=== PATIENT | male | born 1985 | race Caucasian/White ===

== ENCOUNTER 2016-09-02 03:57 | Emergency (ER) | payer MEDICAID, OTHER ==
[2016-09-02 04:10] VITALS: BP 119/71
[2016-09-02] MEDS ORDERED: Lactated Ringers 1,000 ML IV ONE (04:29)
[2016-09-02] MEDS ORDERED: Ondansetron 4 MG/2 ML SDV IV ONE (04:29)
[2016-09-02] MEDS ORDERED: HYDROmorphone 1 MG/ML Syringe IVPUSH ONE (04:35)
--- NOTE | 2016-09-02 04:35 | EDM.PDOC ---
ED HPI GENERAL MEDICAL PROBLEM - General Chief Complaint: Abdominal Pain Stated Complaint: CHEST PAIN Time Seen by Provider: 09/02/16 04:00 Source of Information: Reports: Patient History Limitations: Reports: No Limitations - History of Present Illness INITIAL COMMENTS - FREE TEXT/NARRATIVE: This 30 yo male patient reports to the ED with right upper abdominal pain that started at about 0100 this morning. The patient reports he has vomited numerous times since the onset of his symptoms. The patient reports he had hamburgers and brats last night at about 1900 and went to the movies after eating. The patient reports he has never had similar symptoms in the past. The patient reports he has not been having any difficulties with his bowel movement or urinary symptoms. The patient reports he drank some water that may have helped his symptoms. Onset: Today Onset Date: 09/02/16 Onset Time: 01:00 Duration: Getting Worse, Intermittent Location: Reports: Abdomen (RUQ) Quality: Reports: Ache, Sharp Severity: Severe Improves with: Reports: None Worsens with: Reports: None Associated Symptoms: Reports: No Other Symptoms Right Upper Abdominal Pain Score (Numeric/FACES): 10 - Related Data Allergies Allergy/AdvReac Type Severity Reaction Status Date / Time No Known Allergies Allergy Verified 09/02/16 04:02 Home Meds: Home Meds Sertraline [Zoloft] 1 tab PO DAILY 09/02/16 [History] Past Medical History Psychiatric History: Reports: Anxiety, Depression, PTSD - Past Surgical History HEENT Surgical History: Reports: Tonsillectomy Social & Family History - Tobacco Use Smoking Status *Q: Current Every Day Smoker Years of Tobacco use: 13 Packs/Tins Daily: 0.3 Used Tobacco, but Quit: No Second Hand Smoke Exposure: Yes - Caffeine Use Caffeine Use: Reports: Soda - Alcohol Use Days Per Week of Alcohol Use: 2 Number of Drinks Per Day: 6 Total Drinks Per Week: 12 - Recreational Drug Use Recreational Drug Use: No ED ROS GENERAL - Review of Systems Review Of Systems: ROS reveals no pertinent complaints other than HPI. ED EXAM, GI/ABD - Physical Exam Exam: See Below Exam Limited By: No Limitations General Appearance: Alert, WD/WN, Moderate Distress Eyes: Bilateral: Normal Appearance, EOMI Ears: Normal External Exam, Normal Canal, Hearing Grossly Normal, Normal TMs Nose: Normal Inspection, Normal Mucosa, No Blood Throat/Mouth: Normal Inspection, Normal Lips, Normal Teeth, Normal Gums, Normal Oropharynx, Normal Voice, No Airway Compromise Head: Atraumatic, Normocephalic Neck: Normal Inspection, Supple, Non-Tender, Full Range of Motion Respiratory/Chest: No Respiratory Distress, Lungs Clear, Normal Breath Sounds, No Accessory Muscle Use, Chest Non-Tender Cardiovascular: Normal Peripheral Pulses, Regular Rate, Rhythm, No Edema, No Gallop, No JVD, No Murmur, No Rub GI/Abdominal: Normal Bowel Sounds, Soft, Tenderness (RUQ with mild rebound tenderness to the right lower quadrant) (Male) Exam: Deferred Rectal (Males) Exam: Deferred Back Exam: Normal Inspection, Full Range of Motion, NT Extremities: Normal Inspection, Normal Range of Motion, Non-Tender, Normal Capillary Refill, No Pedal Edema Neurological: Alert, Oriented, CN II-XII Intact, Normal Cognition, Normal Gait, Normal Reflexes, No Motor/Sensory Deficits Psychiatric: Normal Affect, Normal Mood Skin Exam: Warm, Dry, Intact, Normal Color, No Rash Lymphatic: No Adenopathy Course - Vital Signs Last Recorded V/S: Last Vital Signs Temp 35.7 C 09/02/16 04:09 Pulse 67 09/02/16 04:09 Resp 24 H 09/02/16 04:09 BP 119/71 09/02/16 04:09 Pulse Ox 100 09/02/16 04:09 - Orders/Labs/Meds Labs: Laboratory Tests 09/02/16 09/02/16 09/02/16 Range/Units 04:15 04:15 04:24 WBC 15.3 H (5.0-10.0) 10^3/uL RBC 5.40 (4.6-6.2) 10^6/uL Hgb 15.9 (14.0-18.0) g/dL Hct 45.9 (40.0-54.0) % MCV 85.0 (80-100) fL MCH 29.4 (27.0-34.0) pg MCHC 34.6 (33.0-35.0) g/dL Plt Count 247 (150-450) 10^3/uL Neut % (Auto) 46.7 (42.2-75.2) % Lymph % (Auto) 41.9 (20.5-50.1) % [place] % (Auto) 8.1 H (2-8) % Eos % (Auto) 2.9 (1.0-3.0) % Baso % (Auto) 0.4 (0.0-1.0) % Sodium 140 (135-145) mmol/L Potassium 3.4 L (3.6-5.0) mmol/L Chloride 103 (101-111) mmol/L Carbon Dioxide 24.0 (21.0-31.0) mmol/L Anion Gap 16.4 BUN 13 (7-18) mg/dL Creatinine 1.2 (0.6-1.3) mg/dL Est Cr Clr Drug Dosing 95.00 mL/min Estimated GFR (MDRD) > 60 BUN/Creatinine Ratio 10.83 Glucose 106 H (74-105) mg/dL Calcium 9.5 (8.4-10.2) mg/dl Magnesium 1.9 (1.8-2.5) mg/dL Total Bilirubin 0.3 (0.2-1.0) mg/dL AST 48 H (10-42) IU/L ALT 97 H (10-60) IU/L Alkaline Phosphatase 61 (42-121) IU/L Total Protein 7.6 (6.7-8.2) g/dl Albumin 4.4 (3.2-5.5) g/dl Globulin 3.2 Albumin/Globulin Ratio 1.38 Amylase 67 (28-100) U/L Lipase 40 (22-51) U/L Urine Color (YELLOW) Urine Appearance (CLEAR) Urine pH (5.0-9.0) Ur Specific Dexter (1.005-1.030) Urine Protein (NEGATIVE) Urine Glucose (UA) (NEGATIVE) Urine Ketones (NEGATIVE) Urine Occult Blood (NEGATIVE) Urine Nitrite (NEGATIVE) Urine Bilirubin (NEGATIVE) Urine Urobilinogen (0.2-1.0) mg/dL Ur Leukocyte Esterase (NEGATIVE) Urine RBC /HPF Urine WBC (0-5/HPF) /HPF Ur Epithelial Cells /HPF Urine Bacteria (0-FEW/HPF) /HPF Fine Granular Casts (0/LPF) /LPF Urine Mucus /LPF Urine Opiates Screen Negative (NEGATIVE) Ur Oxycodone Screen Negative (NEGATIVE) Urine Methadone Screen Negative (NEGATIVE) Ur Barbiturates Screen Negative (NEGATIVE) U Tricyclic Antidepress Negative (NEGATIVE) Ur Phencyclidine Scrn Negative (NEGATIVE) Ur Amphetamine Screen Negative (NEGATIVE) U Methamphetamines Scrn Negative (NEGATIVE) Urine MDMA Screen Negative (NEGATIVE) U Benzodiazepines Scrn Negative (NEGATIVE) Urine Cocaine Screen Negative (NEGATIVE) U Marijuana (THC) Screen Negative (NEGATIVE) Ethyl Alcohol < 5 mg/dL 09/02/16 Range/Units 04:24 WBC (5.0-10.0) 10^3/uL RBC (4.6-6.2) 10^6/uL Hgb (14.0-18.0) g/dL Hct (40.0-54.0) % MCV (80-100) fL MCH (27.0-34.0) pg MCHC (33.0-35.0) g/dL Plt Count (150-450) 10^3/uL Neut % (Auto) (42.2-75.2) % Lymph % (Auto) (20.5-50.1) % [place] % (Auto) (2-8) % Eos % (Auto) (1.0-3.0) % Baso % (Auto) (0.0-1.0) % Sodium (135-145) mmol/L Potassium (3.6-5.0) mmol/L Chloride (101-111) mmol/L Carbon Dioxide (21.0-31.0) mmol/L Anion Gap BUN (7-18) mg/dL Creatinine (0.6-1.3) mg/dL Est Cr Clr Drug Dosing mL/min Estimated GFR (MDRD) BUN/Creatinine Ratio Glucose (74-105) mg/dL Calcium (8.4-10.2) mg/dl Magnesium (1.8-2.5) mg/dL Total Bilirubin (0.2-1.0) mg/dL AST (10-42) IU/L ALT (10-60) IU/L Alkaline Phosphatase (42-121) IU/L Total Protein (6.7-8.2) g/dl Albumin (3.2-5.5) g/dl Globulin Albumin/Globulin Ratio Amylase (28-100) U/L Lipase (22-51) U/L Urine Color Yellow (YELLOW) Urine Appearance Clear (CLEAR) Urine pH 6.0 (5.0-9.0) Ur Specific Dex[place] 1.025 (1.005-1.030) Urine Protein Negative (NEGATIVE) Urine Glucose (UA) Negative (NEGATIVE) Urine Ketones Negative (NEGATIVE) Urine Occult Blood Trace-intact H (NEGATIVE) Urine Nitrite Negative (NEGATIVE) Urine Bilirubin Negative (NEGATIVE) Urine Urobilinogen 0.2 (0.2-1.0) mg/dL Ur Leukocyte Esterase Negative (NEGATIVE) Urine RBC 0-5 /HPF Urine WBC 10-20 H (0-5/HPF) /HPF Ur Epithelial Cells Moderate H /HPF Urine Bacteria Moderate H (0-FEW/HPF) /HPF Fine Granular Casts Few H (0/LPF) /LPF Urine Mucus Moderate H /LPF Urine Opiates Screen (NEGATIVE) Ur Oxycodone Screen (NEGATIVE) Urine Methadone Screen (NEGATIVE) Ur Barbiturates Screen (NEGATIVE) U Tricyclic Antidepress (NEGATIVE) Ur Phencyclidine Scrn (NEGATIVE) Ur Amphetamine Screen (NEGATIVE) U Methamphetamines Scrn (NEGATIVE) Urine MDMA Screen (NEGATIVE) U Benzodiazepines Scrn (NEGATIVE) Urine Cocaine Screen (NEGATIVE) U Marijuana (THC) Screen (NEGATIVE) Ethyl Alcohol mg/dL Meds: Medications Discontinued Medications Generic Name Dose Route Start Last Admin Trade Name Freq PRN Reason Stop Dose Admin Hydromorphone HCl 1 mg 09/02/16 04:35 09/02/16 04:44 Dilaudid IVPUSH 09/02/16 04:36 1 mg ONETIME ONE Administration Lactated Ringer's 1,000 mls @ 999 mls/hr 09/02/16 04:29 09/02/16 04:43 Ringers, Lactated IV 09/02/16 05:29 999 mls/hr .BOLUS ONE Administration Ondansetron HCl 4 mg 09/02/16 04:29 09/02/16 04:44 Zofran IV 09/02/16 04:30 4 mg ONETIME ONE Administration Departure - Departure Time of Disposition: 06:18 Disposition: Home, Self-Care 01 Condition: Fair Clinical Impression: Abdominal pain Qualifiers: Abdominal location: right upper quadrant Qualified Code(s): R10.11 - Right upper quadrant pain - Discharge Information Instructions: Abdominal Pain, Adult, [id number] Forms: ED Department Discharge Care Plan Goals: The patient was advised of the examination, lab and CT results during the visit. The patient was given IV fluids, Zofran and Dilaudid while in the ED. The CT demonstrated a fluid filled gallbladder, but no stones were identified. The patient was encouraged to stick to a low fat diet. If the patient has any additional symptoms or concerns, the patient should follow-up with his primary care facility for continued evaluation (Gallbladder ultrasound) and treatment.
[2016-09-02 04:48] LABS: CHLORIDE,CL 103 mmol/L (101-111); SODIUM,NA 140 mmol/L (135-145)
== END 2016-09-02 06:33 | disposition home or self-care (01) ==
LOC: DL.ED 03:57
DX: R10.11 Right upper quadrant pain (principal); Z79.899 Other long term (current) drug therapy; F32.9 Major depressive disorder, single episode, unspecified; F41.9 Anxiety disorder, unspecified; F17.210 Nicotine dependence, cigarettes, uncomplicated; K76.0 Fatty (change of) liver, not elsewhere classified
CPT/HCPCS: 36415; 74176; 80053; 80305; 81001; 82150; 83690; 83735; 85025; 96361; 96374; 96375; 99285; G0480; J1170; J2405; J7120

== ENCOUNTER 2019-10-13 07:21 | Emergency (ER) | payer MEDICAID, OTHER ==
[2019-10-13 07:44] VITALS: BP 123/69; PULSE 74
--- NOTE | 2019-10-13 07:50 | EDM.PDOC ---
ED HPI GENERAL MEDICAL PROBLEM - General Stated Complaint: [id number] SHARP PAIN IN CHEST UNDER RIBS Time Seen by Provider: 10/13/19 07:35 Source of Information: Reports: Patient History Limitations: Reports: No Limitations - History of Present Illness INITIAL COMMENTS - FREE TEXT/NARRATIVE: This 34 yo male patient reports to the ED with RUQ abdominal pain. The patient reports his symptoms started yesterday afternoon at about [id number]. The patient describes his pain as if someone placed their hand up under his right lower ribs and just holds on. The patient reports he had a chuckwagon for lunch prior to symptom onset. The patient reports he had dinner at the [employer] last night, ate a filet mignon and experienced increased symptoms after eating. The patient reports he has not taken anything for temporary symptom relief. The patient reports no similar episodes in the past. Onset Date: 10/12/19 Onset Time: 13:00 Duration: Constant Location: Reports: Abdomen (RUQ) Quality: Reports: Pressure (squeezing) Severity: Moderate Improves with: Reports: None Worsens with: Reports: Other (eating) Context: Reports: Other Treatments UNDERCOATER: Denies: Home Treatments Epigastric Pain Score (Numeric/FACES): 6 - Related Data Allergies Allergy/AdvReac Type Severity Reaction Status Date / Time No Known Allergies Allergy Verified 10/13/19 07:32 Home Meds: Home Meds . [No Known Home Meds] 10/13/19 [History] Past Medical History Psychiatric History: Reports: Anxiety, Depression, PTSD - Past Surgical History HEENT Surgical History: Reports: Tonsillectomy Social & Family History - Caffeine Use Caffeine Use: Reports: Soda ED ROS GENERAL - Review of Systems Review Of Systems: Comprehensive ROS is negative, except as noted in HPI. ED EXAM, GI/ABD - Physical Exam Exam: See Below Exam Limited By: No Limitations General Appearance: Alert, WD/WN, Moderate Distress Eyes: Bilateral: Normal Appearance, EOMI Ears: Normal External Exam, Normal Canal, Hearing Grossly Normal, Normal TMs Nose: Normal Inspection, Normal Mucosa, No Blood Throat/Mouth: Normal Inspection, Normal Lips, Normal Teeth, Normal Gums, Normal Oropharynx, Normal Voice, No Airway Compromise Head: Atraumatic, Normocephalic Neck: Normal Inspection, Supple, Non-Tender, Full Range of Motion Respiratory/Chest: No Respiratory Distress, Lungs Clear, Normal Breath Sounds, No Accessory Muscle Use, Chest Non-Tender Cardiovascular: Normal Peripheral Pulses, Regular Rate, Rhythm, No Edema GI/Abdominal Exam: Guarding, Tender (RUQ) (Male) Exam: Deferred Rectal (Males) Exam: Deferred Back Exam: Normal Inspection, Full Range of Motion, NT Extremities: Normal Inspection, Normal Range of Motion, Non-Tender, Normal Capillary Refill, No Pedal Edema Neurological: Alert, Oriented, CN II-XII Intact, Normal Cognition, Normal Gait, Normal Reflexes, No Motor/Sensory Deficits Psychiatric: Normal Affect, Normal Mood Skin Exam: Warm, Dry, Intact, Normal Color, No Rash Lymphatic: No Adenopathy Course - Vital Signs Last Recorded V/S: Last Vital Signs Temp 36.6 C 10/13/19 07:23 Pulse 74 10/13/19 07:23 Resp 16 10/13/19 07:23 BP 123/69 10/13/19 07:23 Pulse Ox 97 10/13/19 07:23 - Orders/Labs/Meds Labs: Laboratory Tests 10/13/19 10/13/19 Range/Units 07:46 07:46 WBC 12.7 H (5.0-10.0) 10^3/uL RBC 4.75 (4.6-6.2) 10^6/uL Hgb 13.9 L D (14.0-18.0) g/dL Hct 40.2 (40.0-54.0) % MCV 84.6 (80-100) fL MCH 29.3 (27.0-34.0) pg MCHC 34.6 (33.0-35.0) g/dL Plt Count 280 (150-450) 10^3/uL Neut % (Auto) 68.2 (42.2-75.2) % Lymph % (Auto) 19.7 L (20.5-50.1) % Power % (Auto) 7.8 (2-8) % Eos % (Auto) 3.9 H (1.0-3.0) % Baso % (Auto) 0.4 (0.0-1.0) % Sodium 138 (136-145) mmol/L Potassium 3.8 (3.5-5.1) mmol/L Chloride 104 (98-107) mmol/L Carbon Dioxide 23 (21-32) mmol/L Anion Gap 14.8 H (7-13) mEq/L BUN 16 (7-18) mg/dL Creatinine 1.16 (0.70-1.30) mg/dL Est Cr Clr Drug Dosing 94.67 mL/min Estimated GFR (MDRD) > 60 BUN/Creatinine Ratio 13.8 (No establ ref range) Glucose 111 H (74-99) mg/dL Calcium 8.4 L (8.5-10.1) mg/dL Total Bilirubin 0.3 (0.2-1.0) mg/dL AST 23 (15-37) U/L ALT 65 H (16-63) U/L Alkaline Phosphatase 67 (46-116) U/L Total Protein 7.2 (6.4-8.2) g/dL Albumin 3.6 (3.4-5.0) g/dL Globulin 3.6 Albumin/Globulin Ratio 1.0 Amylase 39 (25-115) U/L Lipase 151 (73-393) U/L Meds: Medications Discontinued Medications Generic Name Dose Route Start Last Admin Trade Name Freq PRN Reason Stop Dose Admin Al Hydroxide/Mg Hydroxide 30 ml 10/13/19 09:20 10/13/19 09:25 Gi Cocktail PO 10/13/19 09:21 30 ml ONETIME ONE Administration Iopamidol 100 ml 10/13/19 08:14 10/13/19 09:04 Isovue-300 (61%) IVPUSH 10/13/19 08:15 100 ml ONETIME ONE Administration Omeprazole 20 mg 10/13/19 09:48 Omeprazole PO 10/13/19 09:49 ONETIME ONE Departure - Departure Time of Disposition: 09:50 Disposition: Home, Self-Care 01 Condition: Fair Clinical Impression: PUD (peptic ulcer disease) - Discharge Information *PRESCRIPTION DRUG MONITORING PROGRAM REVIEWED*: Not Applicable *COPY OF PRESCRIPTION DRUG MONITORING REPORT IN PATIENT DEEDEE: Not Applicable Instructions: Peptic Ulcer, [id number], Peptic Ulcer Eating Plan Forms: ED Department Discharge Care Plan Goals: The patient was advised of the examination, lab and CT results during the visit. The patient was given a GI Cocktail and an oral dose of Omeprazole while in the ED. The patient was discharged with a script for Omeprazole (20 mg) #30 to take 1 by mouth daily (at least 30 minutes prior to eating). If the patient has any additional symptoms or concerns, the patient should either return to the emergency department or visit his primary care facility. Sepsis Event Note (ED) - Evaluation Sepsis Screening Result: No Definite Risk - Focused Exam Vital Signs: Vital Signs Temp Pulse Resp BP Pulse Ox 10/13/19 07:23 36.6 C 74 16 123/69 97
[2019-10-13 08:12] LABS: ANION GAP 14.8 mEq/L (7-13); CHLORIDE,CL 104 mmol/L (98-107); SODIUM,NA 138 mmol/L (136-145)
[2019-10-13] MEDS ORDERED: Iopamidol 612 MG/ML 100 ML Bottle IVPUSH ONE (08:14)
[2019-10-13] MEDS ORDERED: Bacitracin Oint 1 GM U/D Packet TOP ONE (09:08)
--- NOTE | 2019-10-13 09:14 | CT ---
PROCEDURE INFORMATION: Exam: CT Abdomen And Pelvis With Contrast Exam date and time: 10/13/2019 8:52 AM Age: 34 years old Clinical indication: Abdominal pain; Localized; Right upper quadrant (ruq); Additional info: Ruq abdominal pain (wbc 12.7) TECHNIQUE: Imaging protocol: Computed tomography of the abdomen and pelvis with intravenous contrast. Radiation optimization: All CT scans at this facility use at least one of these dose optimization techniques: automated exposure control; mA and/or kV adjustment per patient size (includes targeted exams where dose is matched to clinical indication); or iterative reconstruction. Contrast material: ISOVUE 300; Contrast volume: 100 ml; Contrast route: INTRAVENOUS (IV); COMPARISON: CT Abdomen Pelvis wo Cont 09/02/2016 5:10 AM FINDINGS: Liver: Chronic unchanged severe diffuse hepatic steatosis. Gallbladder and bile ducts: Normal. No calcified stones. No ductal dilation. Pancreas: Normal. No ductal dilation. Spleen: Normal. No splenomegaly. Adrenals: Normal. No mass. Kidneys and ureters: Normal. No hydronephrosis. Stomach and bowel: Unremarkable. No obstruction. No mucosal thickening. Appendix: Normal appendix. Intraperitoneal space: Unremarkable. No free air. No significant fluid collection. Vasculature: Unremarkable. No abdominal aortic aneurysm. Lymph nodes: Unremarkable. No enlarged lymph nodes. Bladder: Unremarkable as visualized. Reproductive: Normal prostate and seminal vesicles. Bones/joints: Bilateral L5 pars interarticularis defects. 1 mm L5 anterolisthesis. Soft tissues: Unremarkable. IMPRESSION: 1. No acute abnormalities in the abdomen or pelvis or significant findings. 2. Incidental findings include chronic severe [place] steatosis and bilateral L5 spondylolysis.
[2019-10-13] MEDS ORDERED: GI Cocktail Oral Solution 30 ML PO ONE (09:20)
[2019-10-13] MEDS ORDERED: Omeprazole 20 MG Cap.CR PO ONE (09:48)
== END 2019-10-13 10:05 | disposition home or self-care (01) ==
LOC: DL.ED 07:21
DX: K27.9 Peptic ulcer, site unspecified, unspecified as acute or chronic, without hemorrhage or perforation (principal)
CPT/HCPCS: 36415; 74177; 80053; 82150; 83690; 85025; 99284; A9270; Q9967; 99283

== ENCOUNTER 2020-01-24 05:19 | Emergency (ER) | payer MEDICAID ==
[2020-01-24] MEDS ORDERED: Ondansetron 4 MG/2 ML SDV IV ONE (05:33)
[2020-01-24] MEDS ORDERED: Sodium Chloride 0.9% 1,000 ML IV ONE (05:33)
[2020-01-24] MEDS ORDERED: fentaNYL 100 MCG/2 ML SDV IVPUSH ONE (05:51)
[2020-01-24 05:58] LABS: CHLORIDE,CL 99 mmol/L (98-107); SODIUM,NA 138 mmol/L (136-145)
--- NOTE | 2020-01-24 06:02 | EDM.PDOC ---
<Marianela Phelps - Last Filed: 01/24/20 05:51> ED HPI GENERAL MEDICAL PROBLEM - General Chief Complaint: Abdominal Pain Stated Complaint: SHARP PAIN IN BACK Time Seen by Provider: 01/24/20 05:45 Source of Information: Reports: Patient, RN, RN Notes Reviewed History Limitations: Reports: No Limitations - History of Present Illness INITIAL COMMENTS - FREE TEXT/NARRATIVE: Patient presents to ER with complaint of right upper quadrant pain and right flank pain. States he got up about 4:00 this morning to use the restroom and had a sudden abrupt onset of pain which he rates an 8/10. Patient states he did have a bowel movement which was normal for him. Patient denies any fever chills, chest pains, diarrhea. Admits to some shortness of breath as he has pain with deep inspiration, has had nausea and vomiting. Patient denies having kidney stones in the past. States he did have an episode similar to this a few months ago, was seen in the ER and thought possibly he was having gallbladder issues. Patient last ate at supper last night, had tacos. Did have some water and some Aleve prior to coming to the ER, which he vomited up. Patient denies any past medical health problems other than depression/anxiety for which he takes medications for. States he has not taken this medication for the past 5 days as he ran out and has not received his prescription yet. 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 [No Known Home Meds] 10/13/19 [History] Past Medical History Cardiovascular History: Reports: None Gastrointestinal History: Reports: Other (See Below) Other Gastrointestinal History: "gallbladder problems" Genitourinary History: Reports: None Musculoskeletal History: Reports: None Neurological History: Reports: None Psychiatric History: Reports: Anxiety, Depression, PTSD Endocrine/Metabolic History: Reports: None Hematologic History: Reports: None Immunologic History: Reports: None Oncologic (Cancer) History: Reports: None - Past Surgical History HEENT Surgical History: Reports: Eye Surgery, Myringotomy w Tube(s), Oral Surgery, Tonsillectomy GI Surgical History: Reports: None Social & Family History - Tobacco Use Tobacco Use Status *Q: Current Every Day Tobacco User Years of Tobacco use: 15 Packs/Tins Daily: 0.3 Used Tobacco, but Quit: No - Caffeine Use Caffeine Use: Reports: Soda Caffeine Use Comment: drinks sometimes in the morning - Recreational Drug Use Recreational Drug Use: No ED ROS GENERAL - Review of Systems Review Of Systems: Comprehensive ROS is negative, except as noted in HPI. ED EXAM, GI/ABD - Physical Exam Exam: See Below Exam Limited By: No Limitations General Appearance: Alert, WD/WN, Moderate Distress Eyes: Bilateral: Normal Appearance, EOMI Ears: Normal External Exam, Hearing Grossly Normal Nose: Normal Inspection Throat/Mouth: Normal Inspection, Normal Voice, No Airway Compromise Head: Atraumatic, Normocephalic Neck: Normal Inspection, Supple, Non-Tender, Full Range of Motion Respiratory/Chest: No Respiratory Distress, Lungs Clear, Normal Breath Sounds, No Accessory Muscle Use, Chest Non-Tender Cardiovascular: Normal Peripheral Pulses, Regular Rate, Rhythm, No Edema, No Gallop, No JVD, No Murmur, No Rub GI/Abdominal Exam: Normal Bowel Sounds, No Organomegaly, No Distention, No Abnormal Bruit, No Mass, Pelvis Stable, Guarding, Tender (RUQ) (Male) Exam: Deferred Rectal (Males) Exam: Deferred Back Exam: Normal Inspection, Full Range of Motion, CVA Tenderness (R) Extremities: Normal Inspection, Normal Range of Motion, Non-Tender, Normal Capillary Refill, No Pedal Edema Neurological: Alert, Oriented, CN II-XII Intact, Normal Cognition, Normal Gait, Normal Reflexes, No Motor/Sensory Deficits Psychiatric: Normal Affect, Normal Mood Skin Exam: Warm, Dry, Intact, Normal Color, No Rash Lymphatic: No Adenopathy Departure - Departure Disposition: Home, Self-Care 01 Clinical Impression: Abdominal pain Qualifiers: Abdominal location: right upper quadrant Qualified Code(s): R10.11 - Right upper quadrant pain - Discharge Information Instructions: Abdominal Pain, Adult, [id number] Forms: ED Department Discharge Care Plan Goals: The patient was advised of the examination and lab results during the visit. The patient was encouraged to follow-up with his primary care facility for further evaluation (gallbladder ultrasound) and treatment. The patient should stick to a low fat diet to reduce abdominal symptoms. If the patient has any additional symptoms or concerns, the patient should either return to the emergency department or visit his primary care facility. Sepsis Event Note (ED) - Evaluation Sepsis Screening Result: No Definite Risk <Garcia Eugene - Last Filed: 01/24/20 08:47> Course - Vital Signs Last Recorded V/S: Last Vital Signs Temp 36.2 C 01/24/20 05:20 Pulse 62 01/24/20 05:20 Resp 18 01/24/20 05:20 BP 128/81 01/24/20 05:20 Pulse Ox 100 01/24/20 05:20 - Orders/Labs/Meds Orders: Active Orders 24 hr Category Date Time Status URINALYSIS W/MICROSCOPIC [UA W/MICROSCOPIC] [URIN] Stat Lab 01/24/20 05:21 Ordered Labs: Laboratory Tests 01/24/20 01/24/20 01/24/20 Range/Units 05:36 05:36 08:20 WBC 9.3 (5.0-10.0) 10^3/uL RBC 5.16 (4.6-6.2) 10^6/uL Hgb 15.4 D (14.0-18.0) g/dL Hct 44.4 (40.0-54.0) % MCV 86.0 (80-100) fL MCH 29.8 (27.0-34.0) pg MCHC 34.7 (33.0-35.0) g/dL Plt Count 243 (150-450) 10^3/uL Neut % (Auto) 56.8 (42.2-75.2) % Lymph % (Auto) 28.8 (20.5-50.1) % [place] % (Auto) 9.1 H (2-8) % Eos % (Auto) 4.8 H (1.0-3.0) % Baso % (Auto) 0.5 (0.0-1.0) % Sodium 138 (136-145) mmol/L Potassium 4.0 (3.5-5.1) mmol/L Chloride 99 (98-107) mmol/L Carbon Dioxide 31 (21-32) mmol/L Anion Gap 12.0 (7-13) mEq/L BUN 13 (7-18) mg/dL Creatinine 1.12 (0.70-1.30) mg/dL Est Cr Clr Drug Dosing 98.05 mL/min Estimated GFR (MDRD) > 60 BUN/Creatinine Ratio 11.6 (No establ ref range) Glucose 114 H (74-99) mg/dL Calcium 8.9 (8.5-10.1) mg/dL Total Bilirubin 0.3 (0.2-1.0) mg/dL AST 27 (15-37) U/L ALT 64 H (16-63) U/L Alkaline Phosphatase 69 (46-116) U/L C-Reactive Protein 1.2 H (0.0-0.9) mg/dL Total Protein 7.4 (6.4-8.2) g/dL Albumin 3.6 (3.4-5.0) g/dL Globulin 3.8 Albumin/Globulin Ratio 0.9 Amylase 56 (25-115) U/L Lipase 159 (73-393) U/L Urine Color Yellow (YELLOW) Urine Appearance Clear (CLEAR) Urine pH 6.0 (5.0-9.0) Ur Specific [place] >= 1.030 (1.005-1.030) Urine Protein Negative (NEGATIVE) Urine Glucose (UA) Negative (NEGATIVE) Urine Ketones Negative (NEGATIVE) Urine Occult Blood Negative (NEGATIVE) Urine Nitrite Negative (NEGATIVE) Urine Bilirubin Negative (NEGATIVE) Urine Urobilinogen 0.2 (0.2-1.0) mg/dL Ur Leukocyte Esterase Negative (NEGATIVE) Meds: Medications Discontinued Medications Generic Name Dose Route Start Last Admin Trade Name Rogerio PRN Reason Stop Dose Admin Fentanyl 50 mcg 01/24/20 05:51 01/24/20 06:04 Sublimaze IVPUSH 01/24/20 05:52 50 mcg ONETIME ONE Administration Sodium Chloride 1,000 mls @ 999 mls/hr 01/24/20 05:33 01/24/20 05:38 Normal Saline IV 01/24/20 06:33 999 mls/hr .BOLUS ONE Administration Metoclopramide HCl 10 mg 01/24/20 06:05 01/24/20 06:10 Reglan IVPUSH 01/24/20 06:06 10 mg ONETIME ONE Administration Ondansetron HCl 4 mg 01/24/20 05:33 01/24/20 05:38 Zofran IV 01/24/20 05:34 4 mg ONETIME ONE Administration Departure - Departure Time of Disposition: 08:43 Condition: Fair - Discharge Information *PRESCRIPTION DRUG MONITORING PROGRAM REVIEWED*: No *COPY OF PRESCRIPTION DRUG MONITORING REPORT IN PATIENT DEEDEE: No Sepsis Event Note (ED) - Focused Exam Vital Signs: Vital Signs Temp Pulse Resp BP Pulse Ox 01/24/20 05:20 36.2 C 62 18 128/81 100
[2020-01-24] MEDS ORDERED: Metoclopramide 10 MG/2 ML SDV IVPUSH ONE (06:05)
[2020-01-24 09:01] VITALS: BP 143/80; PULSE 70
== END 2020-01-24 08:56 | disposition home or self-care (01) ==
LOC: DL.ED 05:19
DX: R10.11 Right upper quadrant pain (principal); F17.210 Nicotine dependence, cigarettes, uncomplicated
CPT/HCPCS: 36415; 80053; 81001; 82150; 83690; 85025; 86140; 96374; 96375; 99284-25; J2405; J2765; J3010; J7030

== ENCOUNTER 2021-05-24 00:54 | Emergency (ER) | payer MEDICAID ==
[2021-05-24] MEDS ORDERED: Pantoprazole 40 MG Vial IVPUSH ONE (01:06)
[2021-05-24] MEDS ORDERED: Ondansetron 4 MG/2 ML SDV IVPUSH ONE (01:06)
[2021-05-24] MEDS ORDERED: HYDROmorphone 0.5 MG/0.5 ML Syringe IVPUSH ONE (01:27)
[2021-05-24 01:40] LABS: AMPHETAMINES,URINE NEGATIVE (NEGATIVE); BARBITURATES,URINE NEGATIVE (NEGATIVE); BENZODIAZEPINE,URINE NEGATIVE (NEGATIVE); MDMA (ECSTASY), URINE NEGATIVE (NEGATIVE); METHADONE,URINE NEGATIVE (NEGATIVE); METHAMPHETAMINES,URINE NEGATIVE (NEGATIVE); OPIATES,URINE NEGATIVE (NEGATIVE); OXYCODONE,URINE NEGATIVE (NEGATIVE); PHENCYCLIDINE,URINE NEGATIVE (NEGATIVE); TCA,URINE NEGATIVE (NEGATIVE)
[2021-05-24 01:54] LABS: ANION GAP 19.5 mEq/L (7-13); CHLORIDE,CL 103 mmol/L (98-107); SODIUM,NA 144 mmol/L (136-145)
[2021-05-24 01:57] LABS: ACETAMINOPHEN 0 ug/mL (10-30 (Therapeutic))
[2021-05-24] MEDS ORDERED: Iopamidol 612 MG/ML 100 ML Bottle IVPUSH ONE (02:00)
[2021-05-24 05:34] VITALS: BP 102/66; PULSE 62
== END 2021-05-24 05:40 | disposition home or self-care (01) ==
LOC: DL.ED 00:54
DX: R10.11 Right upper quadrant pain (principal); R10.12 Left upper quadrant pain; R10.13 Epigastric pain; Z72.0 Tobacco use
CPT/HCPCS: 36415; 74177; 80053; 80143; 80305; 80307; 81003; 82150; 83605; 83690; 83735; 85025; 96374; 96375; 99284; C9113; J1170; J2405; Q9967; 99285

== ENCOUNTER 2021-08-01 03:55 | Emergency (ER) | payer OTHER ==
[2021-08-01 04:15] VITALS: BP 145/93; PULSE 60
[2021-08-01] MEDS ORDERED: HYDROmorphone 1 MG/ML Syringe IVPUSH ONE (04:16)
[2021-08-01] MEDS ORDERED: Sodium Chloride 0.9% 1,000 ML IV ONE (04:16)
[2021-08-01] MEDS ORDERED: Ondansetron 4 MG/2 ML SDV IVPUSH ONE (04:16)
[2021-08-01 05:10] LABS: ANION GAP 11.1 mEq/L (7-13); CHLORIDE,CL 102 mmol/L (98-107); SODIUM,NA 140 mmol/L (136-145)
[2021-08-01 05:13] LABS: ESTIMATED GFR > 60
[2021-08-01] MEDS ORDERED: HYDROmorphone 0.5 MG/0.5 ML Syringe IVPUSH ONE (05:24)
[2021-08-01 05:45] LABS: AMPHETAMINES,URINE NEGATIVE (NEGATIVE); BARBITURATES,URINE NEGATIVE (NEGATIVE); BENZODIAZEPINE,URINE NEGATIVE (NEGATIVE); MDMA (ECSTASY), URINE NEGATIVE (NEGATIVE); METHADONE,URINE NEGATIVE (NEGATIVE); METHAMPHETAMINES,URINE NEGATIVE (NEGATIVE); OPIATES,URINE NEGATIVE (NEGATIVE); OXYCODONE,URINE NEGATIVE (NEGATIVE); PHENCYCLIDINE,URINE NEGATIVE (NEGATIVE); TCA,URINE NEGATIVE (NEGATIVE)
[2021-08-01] MEDS ORDERED: Iopamidol 612 MG/ML 100 ML Bottle IVPUSH ONE (05:48)
== END 2021-08-01 08:19 | disposition home or self-care (01) ==
LOC: DL.ED 03:55
DX: K85.90 Acute pancreatitis without necrosis or infection, unspecified (principal); K82.8 Other specified diseases of gallbladder
CPT/HCPCS: 36415; 74177; 80053; 80305; 80307; 81003; 82150; 83605; 83690; 85025; 87040; 96374; 96375; 96376; 99284; J1170; J2405; J7030; Q9967

== ENCOUNTER 2021-09-07 08:52 | Emergency (ER) | payer OTHER, MEDICAID ==
[2021-09-07 09:09] VITALS: BP 159/100; PULSE 89
[2021-09-07 09:33] LABS: AMPHETAMINES,URINE NEGATIVE (NEGATIVE); BARBITURATES,URINE NEGATIVE (NEGATIVE); BENZODIAZEPINE,URINE NEGATIVE (NEGATIVE); MDMA (ECSTASY), URINE NEGATIVE (NEGATIVE); METHADONE,URINE NEGATIVE (NEGATIVE); METHAMPHETAMINES,URINE NEGATIVE (NEGATIVE); OPIATES,URINE NEGATIVE (NEGATIVE); OXYCODONE,URINE NEGATIVE (NEGATIVE); PHENCYCLIDINE,URINE NEGATIVE (NEGATIVE); TCA,URINE NEGATIVE (NEGATIVE)
[2021-09-07 09:53] LABS: PTT,PARTIAL THROMBOPLSTIN TIME 23.7 SEC (22.0-34.0)
== END 2021-09-07 12:15 | disposition home or self-care (01) ==
LOC: DL.ED 08:52
DX: F32.9 Major depressive disorder, single episode, unspecified (principal); F10.129 Alcohol abuse with intoxication, unspecified; R45.851 Suicidal ideations; F17.210 Nicotine dependence, cigarettes, uncomplicated; Y90.8 Blood alcohol level of 240 mg/100 ml or more
CPT/HCPCS: 36415; 80053; 80305-QW; 80307; 81003; 82150; 83690; 83735; 84443; 85025; 85610; 85730; 93005; 93010; 99284; 99285

== ENCOUNTER 2021-09-22 06:13 | Emergency (ER) | payer MEDICAID, OTHER ==
[2021-09-22] MEDS ORDERED: Iopamidol 612 MG/ML 100 ML Bottle IVPUSH ONE (06:33)
[2021-09-22] MEDS ORDERED: Sodium Chloride 0.9% 10 ML Syringe FLUSH PRN (06:39)
[2021-09-22] MEDS ORDERED: fentaNYL 100 MCG/2 ML SDV IVPUSH ONE ×2 (06:39→07:56)
[2021-09-22 06:46] VITALS: BP 149/93; PULSE 63
[2021-09-22] MEDS ORDERED: Sodium Chloride 0.9% 1,000 ML IV ONE (07:55)
== END 2021-09-22 09:10 | disposition home or self-care (01) ==
LOC: DL.ED 06:13
DX: R10.11 Right upper quadrant pain (principal); R10.13 Epigastric pain
CPT/HCPCS: 36415; 74177; 80053; 83690; 83735; 85025; 96361; 96374; 96376; 99283; 99284-25; J3010; J3490; J7030; Q9967

== ENCOUNTER 2021-09-25 07:46 | Emergency (ER) | payer MEDICAID, OTHER ==
[2021-09-25 07:55] VITALS: BP 130/87; PULSE 73
[2021-09-25] MEDS ORDERED: Sodium Chloride 0.9% 10 ML Syringe FLUSH PRN (08:05)
[2021-09-25] MEDS ORDERED: Ondansetron 4 MG/2 ML SDV IVPUSH ONE (08:06)
[2021-09-25] MEDS ORDERED: HYDROmorphone 0.5 MG/0.5 ML Syringe IVPUSH ONE (08:06)
[2021-09-25] MEDS ORDERED: Sodium Chloride 0.9% 1,000 ML IV ONE (08:06)
[2021-09-25] MEDS ORDERED: GI Cocktail Oral Solution 30 ML PO ONE (08:24)
[2021-09-25 08:49] LABS: AMPHETAMINES,URINE NEGATIVE (NEGATIVE); BARBITURATES,URINE NEGATIVE (NEGATIVE); BENZODIAZEPINE,URINE NEGATIVE (NEGATIVE); MDMA (ECSTASY), URINE NEGATIVE (NEGATIVE); METHADONE,URINE NEGATIVE (NEGATIVE); METHAMPHETAMINES,URINE NEGATIVE (NEGATIVE); OPIATES,URINE NEGATIVE (NEGATIVE); OXYCODONE,URINE NEGATIVE (NEGATIVE); PHENCYCLIDINE,URINE NEGATIVE (NEGATIVE); TCA,URINE NEGATIVE (NEGATIVE)
[2021-09-25 09:28] LABS: ANION GAP 13.4 mEq/L (7-13)
== END 2021-09-25 09:45 | disposition home or self-care (01) ==
LOC: DL.ED 07:46
DX: R10.84 Generalized abdominal pain (principal); F17.210 Nicotine dependence, cigarettes, uncomplicated; Z79.899 Other long term (current) drug therapy
CPT/HCPCS: 36415; 80053; 80305; 81003; 83605; 83690; 83735; 85025; 86140; 96361; 96374; 96375; 99282; 99284; A9270; J1170; J2405; J3490; J7030

== ENCOUNTER 2021-09-26 08:21 | Emergency (ER) | payer OTHER ==
[2021-09-26] MEDS ORDERED: Ketorolac 30 MG/ML SDV IM ONE (08:37)
[2021-09-26] MEDS ORDERED: Acetaminophen 500 MG Tab PO ONE (08:37)
[2021-09-26 08:42] VITALS: BP 148/71; PULSE 62
== END 2021-09-26 08:51 | disposition home or self-care (01) ==
LOC: DL.ED 08:21
DX: R10.10 Upper abdominal pain, unspecified (principal); Z79.899 Other long term (current) drug therapy
CPT/HCPCS: 96372; 99282; 99283; A9270-GY; J1885